=== PATIENT | male | born 1980 | race Asian ===

== ENCOUNTER 2018-06-27 18:48 | Emergency (ER) | payer MEDICAID ==
[~2018-06-27] VITALS: Ht 170.2 cm; Wt 84.9 kg
[2018-06-27 19:07] VITALS: BP 166/102
--- NOTE | 2018-06-27 19:18 | NUR ---
Patient/Caregiver given discharge instructions and they have confirmed that they understand the instructions. Patient ambulatory with steady gait.
--- NOTE | 2018-06-27 19:18 | NUR ---
PT HERE FOR RASH ON HEAD BELEIVED TO BE SCANBIES BY PT. PT TO DC PER PA WITH CREAM.
== END 2018-06-27 19:24 | disposition home or self-care (01) ==
LOC: ED 19:20
DX: B86 Scabies (principal); L29.9 Pruritus, unspecified
CPT/HCPCS: 99283